=== PATIENT | female | born 1970 | race Caucasian/White ===

== ENCOUNTER 2017-02-06 13:22 | Emergency (ER) | payer BC ==
[~2017-02-06] VITALS: Ht 175.3 cm; Wt 72.6 kg
[~2017-02-06 13:22] MED LIST: CIPR-173 PO; METR500T PO
[2017-02-06] MEDS ORDERED: ONDANSETRON HCL 4 MG/2 ML VIAL IV ONE (13:45)
[2017-02-06] MEDS ORDERED: MORPHINE SULFATE 10 MG/ML INJ 1ML SDV IV ONE (13:45)
[2017-02-06] MEDS ORDERED: HYDROcodone-ACET 10/325MG TAB PO ONE (14:00)
[2017-02-06 15:10] VITALS: BP 111/74
== END 2017-02-06 15:53 | disposition home or self-care (01) ==
LOC: ER 13:24
DX: S62.101A Fracture of unspecified carpal bone, right wrist, initial encounter for closed fracture (principal); W18.31XA Fall on same level due to stepping on an object, initial encounter; Y93.01 Activity, walking, marching and hiking; Y92.89 Other specified places as the place of occurrence of the external cause; Y99.8 Other external cause status; Z88.0 Allergy status to penicillin
CPT/HCPCS: 29125; 73110

== ENCOUNTER 2017-02-11 06:18 | Day surgery (SDC) | payer BC ==
[2017-02-09 12:58] LABS: Basophils # (auto) 0 uL; Eosinophils # (auto) 0.1 uL; Hemoglobin 14.2 g/dL (12.2-16.2); Mean Corpuscular Hgb Conc. 34.5 g/dL (32.0-36.0); Mean Platelet Volume 8.8 fL (6.9-10.8); Monocytes # (auto) 0.6 uL; Red Cell Distribution Width 11.5 % (11.8-14.3)
[2017-02-09 13:00] LABS: Basophils % (auto) 0.4 % (0.0-2.0); Eosinophils % (auto) 1.6 % (0.0-7.0); Hematocrit 41.1 % (36.0-46.0); Lymphocytes # (auto) 2.3 uL; Mean Corpuscular Hemoglobin 35.6 pg (28.0-32.0); Mean Corpuscular Volume 103.1 fL (80.0-100.0); Monocytes % (auto) 7.1 % (0.0-12.0); Neutrophils # (auto) 5.8 uL; Neutrophils % (auto) 64.9 % (37.0-80.0); Platelet Count (auto) 233 10^3/uL (140-450); White Blood Cell 8.9 10^3/uL (4.4-10.8)
[2017-02-09 13:11] LABS: Urine Bilirubin Negative (Negative); Urine Blood Negative /uL (Negative); Urine Glucose Normal (Normal); Urine Ketone Negative (Negative); Urine Mucus FEW (None Seen); Urine Nitrite Negative (Negative); Urine RBC 1 /hpf (0 - 4); Urine Squamous Epithelial Cell FEW /hpf (<5); Urine Urobilinogen Normal (Negative); Urine pH 5.5 (5.0-8.0)
[2017-02-09 13:12] LABS: Urine Color Yellow (Yellow)
[2017-02-09 13:19] LABS: INR 0.93 (0.9-1.15); Partial Thromboplastin Time 26.3 sec (22.64-33.71); Prothrombin Time 10.1 sec (9.37-12.3)
[2017-02-09 13:38] LABS: BUN/Creatinine Ratio 15.2; Bilirubin, Total 0.5 mg/dL (0.2-1.0); Calcium 8.9 mg/dL (8.5-10.1); Potassium 3.8 mmol/L (3.5-5.1); Total Protein 7.6 g/dL (6.4-8.2)
[~2017-02-11] VITALS: Ht 175.3 cm; Wt 74.8 kg
[2017-02-11] MEDS ORDERED: LIDOCAINE 1% HCL (LOCAL ANESTH.) INJ 20ML MDV ONE (07:11)
[2017-02-11] MEDS ORDERED: BUPIVACAINE 0.25% INJ 50ML VIAL ONE (07:11)
[2017-02-11] MEDS ORDERED: fentaNYL CITRATE 100 MCG/2 ML VL ONE (07:14)
[2017-02-11] MEDS ORDERED: METOCLOPRAMIDE HCL 5MG/ml INJ 2ml VIAL ONE (07:15)
[2017-02-11] MEDS ORDERED: LIDOCAINE HCL 2% TOP JELLY 5ML TOP ONE (07:15)
[2017-02-11] MEDS ORDERED: diphenhdrAMINE HCL 50 MG/1 ML VL ONE (07:15)
[2017-02-11] MEDS ORDERED: LIDOCAINE HCL 2 %PF INJ 10ML AMP IJ ONE (07:15)
[2017-02-11] MEDS ORDERED: PROPOFOL 10 MG/ML 20 ML IV ONE (07:15)
[2017-02-11] MEDS ORDERED: DEXAMETHASONE SOD PHOS 10MG/1ML VIAL INJ ONE (07:15)
[2017-02-11] MEDS ORDERED: ONDANSETRON HCL 4 MG/2 ML VIAL ONE (07:15)
[2017-02-11] MEDS ORDERED: MIDAZOLAM HCL 1MG/1ML-2 ML VIAL ONE (07:16)
[2017-02-11] MEDS ORDERED: CLINDAMYCIN 600MG IV 50 ML IV ONE (07:18)
[2017-02-11] MEDS ORDERED: LIDOCAINE HCL 1%(LOCAL ANESTH.) INJ 50ML MDV IJ ONE (07:41)
[2017-02-11 09:00] VITALS: BP 121/70
== END 2017-02-11 09:05 | disposition home or self-care (01) ==
LOC: SUR 06:18
PROVIDERS: ATTEND Orthopaedic Surgery
DX: S52.501A Unspecified fracture of the lower end of right radius, initial encounter for closed fracture (principal); X58.XXXA Exposure to other specified factors, initial encounter; Y93.89 Activity, other specified; Y92.89 Other specified places as the place of occurrence of the external cause; Y99.8 Other external cause status; S52.611A Displaced fracture of right ulna styloid process, initial encounter for closed fracture; D69.6 Thrombocytopenia, unspecified; Z88.0 Allergy status to penicillin; Z90.49 Acquired absence of other specified parts of digestive tract
CPT/HCPCS: 25606; 25651; 36415; 73100; 76000; 80053; 81001; 84702; 85025; 85610; 85730; J1100; J1200; J2001; J2250; J2405; J2704; J2765; J3010; J3490; J7030

== ENCOUNTER 2018-05-26 08:03 | Emergency (ER) | payer BC ==
[~2018-05-26] VITALS: Ht 175.3 cm; Wt 77.1 kg
[2018-05-26] MEDS ORDERED: IOHEXOL 350 MG/ML 100ML IJ ONE (08:38)
[2018-05-26 09:24] LABS: Calcium 8.9 mg/dL (8.5-10.1); Chloride 106 mmol/L (98-107); Potassium 4.2 mmol/L (3.5-5.1); Sodium 141 mmol/L (136-145)
[2018-05-26 09:27] LABS: Basophils # (auto) 0.1 uL; Eosinophils # (auto) 0.1 uL; Lymphocytes # (auto) 1.5 uL; Monocytes # (auto) 0.3 uL; Neutrophils # (auto) 3.6 uL
[2018-05-26 09:30] LABS: Eosinophils % (auto) 1.6 % (0.0-7.0); Hemoglobin 15.2 g/dL (12.2-16.2); Lymphocytes % (auto) 27.1 % (10.0-50.0); Mean Corpuscular Hgb Conc. 34.5 g/dL (32.0-36.0); Mean Corpuscular Volume 101.4 fL (80.0-100.0); Monocytes % (auto) 5.8 % (0.0-12.0); Neutrophils % (auto) 64.5 % (37.0-80.0); Nucleated Red Blood Cells % 0.1 %; Platelet Count (auto) 253 10^3/uL (140-450); Red Blood Cells 4.34 10^6/uL (4.0-5.20); Red Cell Distribution Width 12.2 % (11.8-14.3); White Blood Cell 5.5 10^3/uL (4.4-10.8)
[2018-05-26 09:32] LABS: Alanine Aminotransferase 19 U/L (13-56); Albumin 4.2 g/dL (3.4-5.0); Alkaline Phosphatase 75 U/L (45-117); Anion Gap 7 (5-15); Aspartate Aminotransferase 17 U/L (15-37); Bilirubin, Total 0.7 mg/dL (0.2-1.0); Blood Urea Nitrogen 9 mg/dL (7-18); Carbon Dioxide 28 mmol/L (21-32); GFR African American 105 mL/min; GFR Non-African American 87 mL/min; Glucose 93 mg/dL (74-106); Magnesium 2.2 mg/dL (1.6-2.6); Total Protein 7.4 g/dL (6.4-8.2)
[2018-05-26 11:30] VITALS: BP 129/66
== END 2018-05-26 11:31 | disposition home or self-care (01) ==
LOC: ER 08:03
DX: M50.30 Other cervical disc degeneration, unspecified cervical region (principal); Z88.0 Allergy status to penicillin; Z90.89 Acquired absence of other organs
CPT/HCPCS: 36415; 70450; 71046; 71275; 72125; 80053; 83735; 84484; 85025; 93005; 94761; 99284; Q9967